=== PATIENT | female | born 1955 | race Caucasian/White ===

== ENCOUNTER 2019-12-23 12:24 | Emergency (ER) | payer OTHER ==
[~2019-12-23] VITALS: Ht 172.7 cm; Wt 109.1 kg
[~2019-12-23 12:24] MED LIST: ALPR0.5T3 PO; ATOR1TAB21 PO; CALC600T60 PO; CYCL-707 PO; D31000TA2 PO; DILT-67 PO; DILT120C89 PO; DULO1CAP6 PO; FISH1000 PO; IRON100T PO; LOSA50TA5 PO; MAGN400C PO; METO1TAB7 PO; MULTCAP PO; PREG25CA2 PO; TRAZ-252 PO; TURM500C PO; XARE20TA PO
[2019-12-23] MEDS ORDERED: MECLIZINE 25 MG TABLET PO ONE (13:15)
[2019-12-23 13:52] LABS: BASO % 0.4 % (0.0-1.0); EOS # 0.3 10^3/uL (0.0-0.5); EOS % 3.2 % (0.0-3.0); HEMATOCRIT 47.8 % (36.0-47.0); HEMOGLOBIN 15.7 g/dl (12.0-15.5); LYMPH # 1.8 10^3/uL (1.5-5.0); LYMPH % 18.7 % (24.0-44.0); MEAN CORPUSCULAR HEMOGLOBIN 29.3 pg (27.0-33.0); MEAN CORPUSCULAR HGB CONC 32.8 g/dl (32.0-36.5); MEAN CORPUSCULAR VOLUME 89.2 fl (80.0-96.0); MONO # 0.7 10^3/uL (0.0-0.8); MONO % 6.8 % (0.0-5.0); NEUTROPHILS # 6.9 10^3/uL (1.5-8.5); NEUTROPHILS % 70.6 % (36.0-66.0); PLATELET COUNT, AUTOMATED 230 10^3/uL (150-450); RED BLOOD COUNT 5.36 10^6/uL (4.00-5.40); WHITE BLOOD COUNT 9.7 10^3/uL (4.0-10.0)
[2019-12-23 14:01] LABS: INR 1.43; PROTHROMBIN TIME 17.8 SECONDS (12.5-14.3)
[2019-12-23 14:02] LABS: PARTIAL THROMBOPLASTIN TIME 32.8 SECONDS (24.2-38.5)
--- NOTE | 2019-12-23 14:02 | REPVR ---
PROCEDURE INFORMATION: Exam: CT Head Without Contrast Exam date and time: 12/23/2019 1:46 PM Age: 64 years old Clinical indication: Dizziness TECHNIQUE: Imaging protocol: Computed tomography of the head without contrast. Radiation optimization: All CT scans at this facility use at least one of these dose optimization techniques: automated exposure control; mA and/or kV adjustment per patient size (includes targeted exams where dose is matched to clinical indication); or iterative reconstruction. COMPARISON: No relevant prior studies available. FINDINGS: Brain: [id number] generalized cerebral and cerebellar volume loss, prominent for age. No hemorrhage or edema seen. Small hypodensities in the white matter most likely representing mild chronic small vessel ischemic change. Cerebral ventricles: The ventricles appear enlarged in keeping with volume loss. Bones/joints: Unremarkable. No acute fracture. Paranasal sinuses: Visualized sinuses are unremarkable. No fluid levels. Mastoid air cells: Visualized mastoid air cells are well aerated. Orbital cavity: Prior right scleral banding and lens surgery. The right globe is smaller than the left with posterior contour flattening. Partially calcified high attenuation in the right globe vitreous. Taken together, findings suggest chronic retinal detachment. Soft tissues: Unremarkable. IMPRESSION: No acute intracranial abnormality seen. Right globe retinal detachment, probably chronic. Electronically signed by: Keya Collins On 12/23/2019 14:02:07 PM
[2019-12-23 14:22] LABS: ALBUMIN 3.5 GM/DL (3.2-5.2); ALT/SGPT 24 U/L (12-78); BILIRUBIN,DIRECT 0.2 MG/DL (0.0-0.2); BLOOD UREA NITROGEN 17 MG/DL (7-18); CALCIUM LEVEL 8.8 MG/DL (8.8-10.2); CARBON DIOXIDE LEVEL 29 MEQ/L (21-32); CHLORIDE LEVEL 104 MEQ/L (98-107); CK-MB VALUE MASS < 1.0 NG/ML (<3.6); CPK CREATINE PHOSPHOKINASE 41 U/L (26-192); CREATININE FOR GFR 0.95 MG/DL (0.55-1.30); FREE T4 1.14 NG/DL (0.76-1.46); GLOMERULAR FILTRATION RATE > 60.0 (>45); GLUCOSE, FASTING 103 MG/DL (70-100); MB/CK RELATIVE INDEX 2.44 (< OR =4); SODIUM LEVEL 140 MEQ/L (136-145); TOTAL PROTEIN 6.4 GM/DL (6.4-8.2); TROPONIN I < 0.02 NG/ML (< 0.10)
[2019-12-23] MEDS ORDERED: NS 1,000 ML IV ONE (14:30)
--- NOTE | 2019-12-23 14:33 | REPVR ---
PROCEDURE INFORMATION: Exam: XR Chest, 2 Views Exam date and time: 12/23/2019 2:06 PM Age: 64 years old Clinical indication: Shortness of breath and other: Dizzy; Additional info: SOB TECHNIQUE: Imaging protocol: XR of the chest Views: 2 views. COMPARISON: No relevant prior studies available. FINDINGS: Lungs: Unremarkable. No consolidation. Pleural space: Unremarkable. No pleural effusion. No pneumothorax. Heart/Mediastinum: Unremarkable. No cardiomegaly. Bones/joints: Unremarkable. Intraperitoneal space: A surgical clip projects in the left upper quadrant of the abdomen. Gastrointestinal tract: Mild gaseous distension of bowel in the left upper quadrant of the abdomen. IMPRESSION: No evidence of acute cardiopulmonary disease. Electronically signed by: Keya Collins On 12/23/2019 14:33:27 PM
[2019-12-23] MEDS ORDERED: NITROFURANTOIN (MACROBID) 100 MG CAP PO ONE (17:15)
[2019-12-23 19:02] LABS: CK-MB VALUE MASS < 1.0 NG/ML (<3.6); CPK CREATINE PHOSPHOKINASE 37 U/L (26-192); TROPONIN I < 0.02 NG/ML (< 0.10)
[2019-12-23] MEDS ORDERED: MECL1TAB31 PO (19:10)
[2019-12-23] MEDS ORDERED: MACR100C43 PO (19:12)
[2019-12-23 19:51] VITALS: BP 154/88
--- NOTE | 2019-12-24 05:43 | ECGEPIP ---
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
--- NOTE | 2019-12-24 05:56 | ECGEPIP ---
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
== END 2019-12-23 19:54 | disposition home or self-care (01) ==
LOC: M ED 12:24
DX: R42 Dizziness and giddiness (principal); N30.90 Cystitis, unspecified without hematuria; R06.02 Shortness of breath; R61 Generalized hyperhidrosis; I48.91 Unspecified atrial fibrillation; I10 Essential (primary) hypertension; F41.9 Anxiety disorder, unspecified; F32.9 Major depressive disorder, single episode, unspecified; M19.90 Unspecified osteoarthritis, unspecified site; J45.909 Unspecified asthma, uncomplicated; D75.1 Secondary polycythemia; H35.30 Unspecified macular degeneration; Z98.84 Bariatric surgery status; Z87.891 Personal history of nicotine dependence; Z86.73 Personal history of transient ischemic attack (TIA), and cerebral infarction without residual deficits

== ENCOUNTER → 2020-05-12 | Outpatient (CLI) | payer OTHER ==
[~2020-05-12] MED LIST changes: +LIDOCAINE 1% MDV 20ML VIAL As Ordered ONE; +MACR100C43 PO; +MECL1TAB31 PO; +MULT-90 PO
[2020-05-12 10:32] LABS: BASO # 0.1 10^3/uL (0.0-0.2); BASO % 0.6 % (0.0-1.0); EOS # 0.2 10^3/uL (0.0-0.5); EOS % 1.8 % (0.0-3.0); HEMATOCRIT 50.3 % (36.0-47.0); HEMOGLOBIN 16.7 g/dl (12.0-15.5); LYMPH # 1.8 10^3/uL (1.5-5.0); LYMPH % 21.9 % (24.0-44.0); MEAN CORPUSCULAR HEMOGLOBIN 29.5 pg (27.0-33.0); MEAN CORPUSCULAR HGB CONC 33.2 g/dl (32.0-36.5); MEAN CORPUSCULAR VOLUME 88.9 fl (80.0-96.0); MONO # 0.6 10^3/uL (0.0-0.8); MONO % 6.6 % (2.0-8.0); NEUTROPHILS # 5.8 10^3/uL (1.5-8.5); NEUTROPHILS % 68.7 % (36.0-66.0); PLATELET COUNT, AUTOMATED 217 10^3/uL (150-450); RED BLOOD COUNT 5.66 10^6/uL (4.00-5.40); WHITE BLOOD COUNT 8.4 10^3/uL (4.0-10.0)
[2020-05-12 10:59] LABS: ALBUMIN 3.6 GM/DL (3.2-5.2); BILIRUBIN,TOTAL 0.9 MG/DL (0.2-1.0); CALCIUM LEVEL 9.1 MG/DL (8.8-10.2); GLOMERULAR FILTRATION RATE 59.4 (>45); POTASSIUM SERUM 3.8 MEQ/L (3.5-5.1); TOTAL PROTEIN 6.9 GM/DL (6.4-8.2)
[2020-05-12 11:21] VITALS: BP 190/95
--- NOTE | 2020-05-12 16:09 | REP ---
INDICATION: ERYTHROPOIETIN LEVELS ELEVATED. COMPARISON: None. TECHNIQUE: The procedure was performed under the direct supervision of Dr. Lyman. The risks and benefits of the procedure were explained to the patient and informed consent was obtained. The right iliac crest was localized using CT guidance. The skin was prepped and draped in a sterile fashion. 1% lidocaine was used as a local anesthetic. Using CT guidance an 11 gauge bone biopsy system was inserted. 7 cc of marrow fluid and 1 core biopsy was obtained. The patient tolerated the procedure well and there were no immediate complications. After the appropriate amount to monitor convalescence the patient was discharged from the department. FINDINGS: None IMPRESSION: CT-guided right iliac bone marrow biopsy. <Electronically signed by Jayden Reyes > 05/12/20 [id number] <Electronically signed by Jose Ramon Lyman > 05/12/20 [id number]
== END ==
LOC: M IRPRO 09:43
PROVIDERS: ATTEND Internal Medicine Medical Oncology
DX: R71.8 Other abnormality of red blood cells (principal)